=== PATIENT | male | born 1965 | race Caucasian/White ===

== ENCOUNTER 2018-06-10 06:25 | Inpatient (IN) | payer OTHER ==
[2018-06-10] MEDS ORDERED: NEOSTIGMINE 3 MG/3 ML SYRINGE (07:41)
[2018-06-10] MEDS ORDERED: ROCURONIUM 50 MG INJ (07:41)
[2018-06-10] MEDS ORDERED: PROPOFOL 20 ML (07:41)
[2018-06-10] MEDS ORDERED: CEFAZOLIN 1 GM INJ (07:41)
[2018-06-10] MEDS ORDERED: GLYCOPYRROLATE 0.4 MG INJ (07:41)
[2018-06-10] MEDS ORDERED: ONDANSETRON 4 MG INJ (07:45)
[2018-06-10] MEDS ORDERED: MIDAZOLAM 1 MG/ML 2 ML INJ (07:45)
[2018-06-10] MEDS ORDERED: FENTAnyl 50 MCG/ML VIAL (07:45)
[2018-06-10] MEDS ORDERED: DEXAMETHASONE 4 MG/ML 5 ML INJ (07:45)
[2018-06-10] MEDS ORDERED: FENTAnyl 50 MCG/ML VIAL IV ×2 (08:00)
[2018-06-10] MEDS ORDERED: NALOXONE (0.4 MG/ML) INJ IV ×2 (08:00→13:00)
[2018-06-10] MEDS ORDERED: HYDROmorphONE 0.5 MG/0.5 ML SYG IV ×2 (08:00)
[2018-06-10] MEDS ORDERED: LABETALOL HCL 20MG INJ IV (08:00)
[2018-06-10] MEDS ORDERED: IPRATROPIUM (NEB) 0.5 MG/2.5 ML AMP HHN (08:00)
[2018-06-10] MEDS ORDERED: EPHEDrine SULFATE 50 MG/5 ML SYG IV (08:00)
[2018-06-10] MEDS ORDERED: TRIMETHOBENZAMIDE 100 MG/ML VIAL IM ×2 (08:00)
[2018-06-10] MEDS ORDERED: MIDAZOLAM 1 MG/ML 2 ML INJ IV (08:00)
[2018-06-10] MEDS ORDERED: OXYCODONE/ACETAMINOPHEN (5/325) TAB PO ×2 (08:00)
[2018-06-10] MEDS ORDERED: DIPHENHYDRAMINE 50 MG INJ IV ×2 (08:00)
[2018-06-10] MEDS ORDERED: ALBUTEROL 0.083% (NEB) 2.5 MG/3 ML AMP HHN (08:00)
[2018-06-10] MEDS ORDERED: NALBUPHINE HCL (10 MG/1 ML) INJ IV (08:00)
[2018-06-10] MEDS ORDERED: HYDROmorphONE 1 MG/5 ML IV SYRINGE IV (08:00)
[2018-06-10] MEDS ORDERED: hydrALAzine 20 MG INJ IV (08:00)
[2018-06-10] MEDS ORDERED: morphine SULFATE/PF (10 MG/10 ML) INJ (08:11)
[2018-06-10] MEDS ORDERED: ROPIVACAINE 0.2% 20 ML VIAL (08:11)
[2018-06-10] MEDS ORDERED: PIPER-TAZO 3.375 GM IV (PMX) 100 ML (08:14)
[2018-06-10] MEDS ORDERED: ALBUMIN HUMAN 5% 250 ML (09:08)
[2018-06-10] MEDS ORDERED: SUGAMMADEX SODIUM 200 MG/2 ML VIAL IV (10:21)
[2018-06-10] MEDS: AMPICILLIN/SULB 3 GM/NS (PMX) 100 ML IVPB (11:26)
[2018-06-10] MEDS: HYDROmorphONE 1 MG/5 ML IV SYRINGE IV ×4 (11:44→12:58)
[2018-06-10] MEDS: FENTAnyl 50 MCG/ML VIAL IV ×2 (12:09→12:18)
[2018-06-10] MEDS: MEPERIDINE 25 MG INJ IV (12:29)
[2018-06-10] MEDS: ONDANSETRON 4 MG INJ IV ×2 (12:30→19:37)
[2018-06-10] MEDS: SOD CHLORIDE 0.9% 1,000 ML IV (14:38)
[2018-06-10] MEDS: D5W-0.45 NACL + KCL 20 MEQ 1,000 ML IV ×2 (16:52→23:28)
[2018-06-10] MEDS: PIPER-TAZO 3.375 GM IV (PMX) 100 ML IVPB ×2 (18:16→23:28)
[2018-06-10] MEDS: FENTAnyl 2MCG/ML-ROPIV 0.2% 100 ML BAG EPI (20:16)
[2018-06-11] MEDS: PIPER-TAZO 3.375 GM IV (PMX) 100 ML IVPB ×4 (05:14→23:16)
[2018-06-11 05:41] LABS: ADD MAN DIFF? NO
[2018-06-11] MEDS: FENTAnyl 2MCG/ML-ROPIV 0.2% 100 ML BAG EPI ×3 (05:46→23:52)
[2018-06-11 05:48] LABS: ABNORMAL IP MESSAGE 1; BASOPHILS % 0.1 % (0.0-2.0); HEMATOCRIT 36.9 % (42.0-52.0); HEMOGLOBIN 12.4 g/dl (14.0-18.0); LYMPHOCYTES # 0.5 10^3/ul (0.8-2.9); LYMPHOCYTES % 5.4 % (15.0-51.0); MEAN CORPUSCULAR HEMOGLOBIN 35.3 pg (29.0-33.0); MEAN CORPUSCULAR HGB CONC 33.6 g/dl (32.0-37.0); MEAN CORPUSCULAR VOLUME 105.1 fl (82.0-101.0); MEAN PLATELET VOLUME 10.9 fl (7.4-10.4); MONOCYTE # 0.6 10^3/ul (0.3-0.9); MONOCYTES % 6.3 % (0.0-11.0); NEUTROPHIL # 8.3 10^3/ul (1.6-7.5); NEUTROPHILS % 87.8 % (39.0-77.0); PLATELET COUNT 120 10^3/UL (140-415); POSITIVE DIFF @See below; RED BLOOD COUNT 3.51 10^6/ul (4.70-6.10); RED CELL DISTRIBUTION WIDTH 11.9 % (11.5-14.5)
[2018-06-11 05:48] LABS: WHITE BLOOD COUNT 9.5 10^3/ul (4.8-10.8)
[2018-06-11 06:09] LABS: MAGNESIUM 1.6 mg/dl (1.7-2.5)
[2018-06-11 06:09] LABS: PHOSPHORUS 2.8 mg/dl (2.5-4.9)
[2018-06-11 06:10] LABS: ALANINE AMINOTRANSFERASE 21 IU/L (13-69); ALBUMIN 3.2 g/dl (3.3-4.9); ALBUMIN/GLOBULIN RATIO 1.33; ALKALINE PHOSPHATASE 28 IU/L (42-121); ANION GAP 6 (5-13); ASPARTATE AMINO TRANSFERASE 22 IU/L (15-46); BILIRUBIN,INDIRECT 0.8 mg/dl (0-1.1); BILIRUBIN,TOTAL 0.8 mg/dl (0.2-1.3); BLOOD UREA NITROGEN 16 mg/dl (7-20); CALCIUM 8.1 mg/dl (8.4-10.2); CARBON DIOXIDE 27 mmol/L (21-31); CHLORIDE 104 mmol/L (97-110); CREATININE 0.91 mg/dl (0.61-1.24); Estimated GFR > 60 mL/min (>60); GLUCOSE 126 mg/dl (70-220); SODIUM 137 mmol/L (135-144); TOTAL PROTEIN 5.6 g/dl (6.1-8.1)
[2018-06-11] MEDS: ONDANSETRON 4 MG INJ IV ×2 (06:28→09:40)
[2018-06-11] MEDS: D5W-0.45 NACL + KCL 20 MEQ 1,000 ML IV ×2 (08:32→18:40)
[2018-06-11] MEDS: MAGNESIUM SULFATE 2 GM/50 ML 50 ML IVPB (11:51)
[2018-06-11] MEDS: HYDROmorphONE 0.5 MG/0.5 ML SYG IV (13:12)
[2018-06-11] MEDS: CEPASTAT LOZENGE MT (13:12)
[2018-06-12] MEDS: LORAZEPAM 2 MG INJ IV (02:14)
[2018-06-12] MEDS: D5W-0.45 NACL + KCL 20 MEQ 1,000 ML IV ×3 (03:59→12:39)
[2018-06-12 05:08] LABS: ADD MAN DIFF? NO
[2018-06-12 05:20] LABS: WHITE BLOOD COUNT 8.6 10^3/ul (4.8-10.8)
[2018-06-12 05:20] LABS: ABNORMAL IP MESSAGE 1; BASOPHILS % 0.1 % (0.0-2.0); HEMATOCRIT 36.6 % (42.0-52.0); HEMOGLOBIN 12.5 g/dl (14.0-18.0); LYMPHOCYTES # 0.5 10^3/ul (0.8-2.9); MEAN CORPUSCULAR HGB CONC 34.2 g/dl (32.0-37.0); MEAN CORPUSCULAR VOLUME 102.5 fl (82.0-101.0); MEAN PLATELET VOLUME 10.6 fl (7.4-10.4); MONOCYTE # 0.5 10^3/ul (0.3-0.9); MONOCYTES % 5.7 % (0.0-11.0); NEUTROPHIL # 7.5 10^3/ul (1.6-7.5); NEUTROPHILS % 87.5 % (39.0-77.0); PLATELET COUNT 115 10^3/UL (140-415); POSITIVE DIFF @See below; RED BLOOD COUNT 3.57 10^6/ul (4.70-6.10); RED CELL DISTRIBUTION WIDTH 11.9 % (11.5-14.5)
[2018-06-12 05:34] LABS: PHOSPHORUS 1.6 mg/dl (2.5-4.9)
[2018-06-12 05:34] LABS: MAGNESIUM 2.3 mg/dl (1.7-2.5)
[2018-06-12 05:38] LABS: ANION GAP 5 (5-13); BLOOD UREA NITROGEN 10 mg/dl (7-20); CALCIUM 8.4 mg/dl (8.4-10.2); CARBON DIOXIDE 25 mmol/L (21-31); CHLORIDE 108 mmol/L (97-110); CREATININE 0.77 mg/dl (0.61-1.24); Estimated GFR > 60 mL/min (>60); GLUCOSE 127 mg/dl (70-220); SODIUM 138 mmol/L (135-144)
[2018-06-12] MEDS: PIPER-TAZO 3.375 GM IV (PMX) 100 ML IVPB ×3 (06:22→17:08)
[2018-06-12] MEDS: FENTAnyl 2MCG/ML-ROPIV 0.2% 100 ML BAG EPI ×2 (08:39→17:08)
[2018-06-12] MEDS: HYDROmorphONE 0.5 MG/0.5 ML SYG IV ×2 (08:49→21:48)
[2018-06-12] MEDS: SODIUM PHOSPHATE 20 MEQ in SOD CHLORIDE 0.9% 250 ML IVPB (15:16)
[2018-06-12] MEDS: ONDANSETRON 4 MG INJ IV ×2 (15:22→21:46)
[2018-06-13] MEDS: D5W-0.45 NACL + KCL 20 MEQ 1,000 ML IV ×4 (00:54→23:53)
[2018-06-13] MEDS: PIPER-TAZO 3.375 GM IV (PMX) 100 ML IVPB ×5 (00:55→23:53)
[2018-06-13] MEDS: FENTAnyl 2MCG/ML-ROPIV 0.2% 100 ML BAG EPI (01:48)
[2018-06-13 05:19] LABS: ADD MAN DIFF? NO
[2018-06-13 05:20] LABS: WHITE BLOOD COUNT 8.9 10^3/ul (4.8-10.8)
[2018-06-13 05:20] LABS: ABNORMAL IP MESSAGE 1; BASOPHILS % 0.2 % (0.0-2.0); HEMATOCRIT 38.4 % (42.0-52.0); HEMOGLOBIN 13.1 g/dl (14.0-18.0); LYMPHOCYTES # 0.4 10^3/ul (0.8-2.9); LYMPHOCYTES % 4.7 % (15.0-51.0); MEAN CORPUSCULAR HEMOGLOBIN 34.7 pg (29.0-33.0); MEAN CORPUSCULAR HGB CONC 34.1 g/dl (32.0-37.0); MEAN CORPUSCULAR VOLUME 101.6 fl (82.0-101.0); MEAN PLATELET VOLUME 10.7 fl (7.4-10.4); MONOCYTE # 0.5 10^3/ul (0.3-0.9); MONOCYTES % 6.1 % (0.0-11.0); NEUTROPHIL # 7.8 10^3/ul (1.6-7.5); NEUTROPHILS % 88.3 % (39.0-77.0); PLATELET COUNT 132 10^3/UL (140-415); POSITIVE DIFF @See below; RED BLOOD COUNT 3.78 10^6/ul (4.70-6.10); RED CELL DISTRIBUTION WIDTH 11.9 % (11.5-14.5)
[2018-06-13 05:43] LABS: PHOSPHORUS 2.3 mg/dl (2.5-4.9)
[2018-06-13 05:43] LABS: MAGNESIUM 2.2 mg/dl (1.7-2.5)
[2018-06-13 06:10] LABS: ANION GAP 6 (5-13); BLOOD UREA NITROGEN 13 mg/dl (7-20); CALCIUM 8.5 mg/dl (8.4-10.2); CARBON DIOXIDE 24 mmol/L (21-31); CHLORIDE 109 mmol/L (97-110); CREATININE 0.72 mg/dl (0.61-1.24); Estimated GFR > 60 mL/min (>60); GLUCOSE 114 mg/dl (70-220); POTASSIUM 3.7 mmol/L (3.5-5.1); SODIUM 139 mmol/L (135-144)
[2018-06-13] MEDS: LORAZEPAM 2 MG INJ IV (11:05)
[2018-06-13] MEDS: POTASSIUM PHOSPHATE 40 MEQ in SOD CHLORIDE 0.9% 250 ML IVPB (11:05)
[2018-06-13] MEDS ORDERED: CEPASTAT LOZENGE MT (14:30)
[2018-06-13] MEDS: CEPASTAT LOZENGE MT ×3 (16:15→20:41)
[2018-06-14] MEDS: ONDANSETRON 4 MG INJ IV (00:48)
[2018-06-14] MEDS: HYDROmorphONE 0.5 MG/0.5 ML SYG IV (00:48)
[2018-06-14 05:37] LABS: ADD MAN DIFF? NO
[2018-06-14 05:41] LABS: WHITE BLOOD COUNT 6.5 10^3/ul (4.8-10.8)
[2018-06-14 05:41] LABS: ABNORMAL IP MESSAGE 1; BASOPHILS % 0.3 % (0.0-2.0); EOSINOPHILS % 0.2 % (0.0-7.0); HEMATOCRIT 37.3 % (42.0-52.0); HEMOGLOBIN 12.6 g/dl (14.0-18.0); LYMPHOCYTES # 0.6 10^3/ul (0.8-2.9); LYMPHOCYTES % 8.4 % (15.0-51.0); MEAN CORPUSCULAR HEMOGLOBIN 34.5 pg (29.0-33.0); MEAN CORPUSCULAR HGB CONC 33.8 g/dl (32.0-37.0); MEAN CORPUSCULAR VOLUME 102.2 fl (82.0-101.0); MEAN PLATELET VOLUME 10.8 fl (7.4-10.4); MONOCYTE # 0.5 10^3/ul (0.3-0.9); MONOCYTES % 7.2 % (0.0-11.0); NEUTROPHIL # 5.4 10^3/ul (1.6-7.5); NEUTROPHILS % 83.4 % (39.0-77.0); PLATELET COUNT 149 10^3/UL (140-415); POSITIVE DIFF @See below; RED BLOOD COUNT 3.65 10^6/ul (4.70-6.10); RED CELL DISTRIBUTION WIDTH 11.9 % (11.5-14.5)
[2018-06-14] MEDS: PIPER-TAZO 3.375 GM IV (PMX) 100 ML IVPB ×3 (05:45→17:15)
[2018-06-14 05:59] LABS: MAGNESIUM 2.3 mg/dl (1.7-2.5)
[2018-06-14 05:59] LABS: PHOSPHORUS 2.9 mg/dl (2.5-4.9)
[2018-06-14 06:13] LABS: ANION GAP 6 (5-13); BLOOD UREA NITROGEN 20 mg/dl (7-20); CALCIUM 8.2 mg/dl (8.4-10.2); CARBON DIOXIDE 25 mmol/L (21-31); CHLORIDE 108 mmol/L (97-110); Estimated GFR > 60 mL/min (>60); GLUCOSE 122 mg/dl (70-220); POTASSIUM 3.9 mmol/L (3.5-5.1); SODIUM 139 mmol/L (135-144)
[2018-06-14] MEDS: D5W-0.45 NACL + KCL 20 MEQ 1,000 ML IV ×3 (10:39→21:57)
[2018-06-15] MEDS: PIPER-TAZO 3.375 GM IV (PMX) 100 ML IVPB ×4 (00:04→18:17)
[2018-06-15] MEDS: METOCLOPRAMIDE 10 MG INJ IV ×3 (02:05→18:05)
[2018-06-15 05:18] LABS: ADD MAN DIFF? NO
[2018-06-15 05:24] LABS: ABNORMAL IP MESSAGE 1; BASOPHILS % 0.4 % (0.0-2.0); EOSINOPHILS # 0.1 10^3/ul (0.0-0.5); EOSINOPHILS % 1.5 % (0.0-7.0); HEMATOCRIT 36.3 % (42.0-52.0); HEMOGLOBIN 12.3 g/dl (14.0-18.0); LYMPHOCYTES # 0.4 10^3/ul (0.8-2.9); LYMPHOCYTES % 7.3 % (15.0-51.0); MEAN CORPUSCULAR HEMOGLOBIN 34.4 pg (29.0-33.0); MEAN CORPUSCULAR HGB CONC 33.9 g/dl (32.0-37.0); MEAN CORPUSCULAR VOLUME 101.4 fl (82.0-101.0); MEAN PLATELET VOLUME 10.5 fl (7.4-10.4); MONOCYTE # 0.5 10^3/ul (0.3-0.9); NEUTROPHIL # 4.2 10^3/ul (1.6-7.5); NEUTROPHILS % 80.6 % (39.0-77.0); PLATELET COUNT 174 10^3/UL (140-415); POSITIVE DIFF @See below; RED BLOOD COUNT 3.58 10^6/ul (4.70-6.10); RED CELL DISTRIBUTION WIDTH 11.8 % (11.5-14.5)
[2018-06-15 05:24] LABS: WHITE BLOOD COUNT 5.2 10^3/ul (4.8-10.8)
[2018-06-15] MEDS: D5W-0.45 NACL + KCL 20 MEQ 1,000 ML IV ×2 (06:32→16:43)
[2018-06-16] MEDS: PIPER-TAZO 3.375 GM IV (PMX) 100 ML IVPB ×5 (00:31→23:48)
[2018-06-16] MEDS: D5W-0.45 NACL + KCL 20 MEQ 1,000 ML IV ×2 (03:32→14:39)
[2018-06-16 05:17] LABS: ADD MAN DIFF? NO
[2018-06-16 05:25] LABS: WHITE BLOOD COUNT 5.3 10^3/ul (4.8-10.8)
[2018-06-16 05:25] LABS: ABNORMAL IP MESSAGE 1; BASOPHILS % 0.6 % (0.0-2.0); EOSINOPHILS # 0.2 10^3/ul (0.0-0.5); EOSINOPHILS % 2.8 % (0.0-7.0); HEMATOCRIT 36.5 % (42.0-52.0); HEMOGLOBIN 12.4 g/dl (14.0-18.0); LYMPHOCYTES # 0.5 10^3/ul (0.8-2.9); LYMPHOCYTES % 9.9 % (15.0-51.0); MEAN CORPUSCULAR HEMOGLOBIN 34.4 pg (29.0-33.0); MEAN CORPUSCULAR VOLUME 101.4 fl (82.0-101.0); MEAN PLATELET VOLUME 10.7 fl (7.4-10.4); MONOCYTE # 0.7 10^3/ul (0.3-0.9); MONOCYTES % 12.2 % (0.0-11.0); NEUTROPHIL # 3.9 10^3/ul (1.6-7.5); NEUTROPHILS % 72.6 % (39.0-77.0); PLATELET COUNT 170 10^3/UL (140-415); POSITIVE DIFF @See below; RED CELL DISTRIBUTION WIDTH 11.9 % (11.5-14.5)
[2018-06-16 05:57] LABS: ANION GAP 6 (5-13); BLOOD UREA NITROGEN 12 mg/dl (7-20); CALCIUM 8.7 mg/dl (8.4-10.2); CARBON DIOXIDE 28 mmol/L (21-31); CHLORIDE 103 mmol/L (97-110); CREATININE 0.95 mg/dl (0.61-1.24); Estimated GFR > 60 mL/min (>60); GLUCOSE 105 mg/dl (70-220); POTASSIUM 3.7 mmol/L (3.5-5.1); SODIUM 137 mmol/L (135-144)
[2018-06-16] MEDS: PANTOPRAZOLE 40 MG INJ IV (06:37)
[2018-06-17] MEDS: D5W-0.45 NACL + KCL 20 MEQ 1,000 ML IV ×2 (01:33→16:16)
[2018-06-17 05:16] LABS: ADD MAN DIFF? NO
[2018-06-17 05:18] LABS: BASOPHILS % 0.4 % (0.0-2.0); EOSINOPHILS # 0.2 10^3/ul (0.0-0.5); EOSINOPHILS % 2.9 % (0.0-7.0); HEMATOCRIT 37.5 % (42.0-52.0); HEMOGLOBIN 12.8 g/dl (14.0-18.0); LYMPHOCYTES # 0.7 10^3/ul (0.8-2.9); LYMPHOCYTES % 12.1 % (15.0-51.0); MEAN CORPUSCULAR HEMOGLOBIN 34.2 pg (29.0-33.0); MEAN CORPUSCULAR HGB CONC 34.1 g/dl (32.0-37.0); MEAN CORPUSCULAR VOLUME 100.3 fl (82.0-101.0); MEAN PLATELET VOLUME 10.5 fl (7.4-10.4); MONOCYTE # 0.6 10^3/ul (0.3-0.9); MONOCYTES % 10.8 % (0.0-11.0); NEUTROPHIL # 3.9 10^3/ul (1.6-7.5); PLATELET COUNT 193 10^3/UL (140-415); RED BLOOD COUNT 3.74 10^6/ul (4.70-6.10); RED CELL DISTRIBUTION WIDTH 11.8 % (11.5-14.5)
[2018-06-17 05:18] LABS: WHITE BLOOD COUNT 5.5 10^3/ul (4.8-10.8)
[2018-06-17] MEDS: PIPER-TAZO 3.375 GM IV (PMX) 100 ML IVPB ×4 (05:43→23:26)
[2018-06-17] MEDS: PANTOPRAZOLE 40 MG INJ IV (05:43)
[2018-06-17 05:50] LABS: ANION GAP 7 (5-13); BLOOD UREA NITROGEN 11 mg/dl (7-20); CARBON DIOXIDE 28 mmol/L (21-31); CHLORIDE 103 mmol/L (97-110); CREATININE 1.03 mg/dl (0.61-1.24); Estimated GFR > 60 mL/min (>60); GLUCOSE 104 mg/dl (70-220); POTASSIUM 4.1 mmol/L (3.5-5.1); SODIUM 138 mmol/L (135-144)
[2018-06-17] MEDS: IOHEXOL 300MG/ML 150 ML BTL (09:05)
[2018-06-17] MEDS: METOCLOPRAMIDE 10 MG INJ IV (14:10)
[2018-06-18] MEDS: D5W-0.45 NACL + KCL 20 MEQ 1,000 ML IV ×5 (00:01→21:28)
[2018-06-18] MEDS: PIPER-TAZO 3.375 GM IV (PMX) 100 ML IVPB ×4 (05:24→23:27)
[2018-06-18] MEDS: PANTOPRAZOLE 40 MG INJ IV (05:24)
[2018-06-18 15:26] LABS: ADD UMIC YES; UR AMORPHOUS CRYSTAL MANY /HPF (NONE SEEN); UR ASCORBIC ACID NEGATIVE (NEGATIVE); UR BACTERIA FEW /HPF (NONE SEEN); UR BILIRUBIN (Dip) NEGATIVE (NEGATIVE); UR BLOOD (Dip) 1+ mg/dL (NEGATIVE); UR CLARITY TURBID (CLEAR); UR COLOR YELLOW (YELLOW); UR GLUCOSE (Dip) NEGATIVE (NEGATIVE); UR KETONES (Dip) NEGATIVE (NEGATIVE); UR LEUKOCYTE ESTERASE (Dip) NEGATIVE Leu/ul (NEGATIVE); UR NITRITE (Dip) NEGATIVE (NEGATIVE); UR RBC 7 /HPF (0-5); UR SPECIFIC GRAVITY (Dip) 1.039 (1.003-1.030); UR TOTAL PROTEIN (Dip) NEGATIVE (NEGATIVE); UR UROBILINOGEN (Dip) NEGATIVE (NEGATIVE); UR WBC 20 /HPF (0-5)
[2018-06-19] MEDS: D5W-0.45 NACL + KCL 20 MEQ 1,000 ML IV ×5 (00:36→21:35)
[2018-06-19] MEDS: PIPER-TAZO 3.375 GM IV (PMX) 100 ML IVPB ×2 (05:06→12:16)
[2018-06-19] MEDS: PANTOPRAZOLE 40 MG INJ IV (05:07)
[2018-06-19 05:52] LABS: ADD MAN DIFF? NO
[2018-06-19 06:04] LABS: BASOPHILS % 0.6 % (0.0-2.0); EOSINOPHILS # 0.2 10^3/ul (0.0-0.5); EOSINOPHILS % 3.3 % (0.0-7.0); HEMATOCRIT 38.5 % (42.0-52.0); HEMOGLOBIN 12.8 g/dl (14.0-18.0); LYMPHOCYTES # 0.7 10^3/ul (0.8-2.9); LYMPHOCYTES % 11.2 % (15.0-51.0); MEAN CORPUSCULAR HEMOGLOBIN 34.1 pg (29.0-33.0); MEAN CORPUSCULAR HGB CONC 33.2 g/dl (32.0-37.0); MEAN CORPUSCULAR VOLUME 102.7 fl (82.0-101.0); MEAN PLATELET VOLUME 10.4 fl (7.4-10.4); MONOCYTE # 0.6 10^3/ul (0.3-0.9); MONOCYTES % 9.8 % (0.0-11.0); NEUTROPHIL # 4.7 10^3/ul (1.6-7.5); NEUTROPHILS % 73.2 % (39.0-77.0); PLATELET COUNT 258 10^3/UL (140-415); RED BLOOD COUNT 3.75 10^6/ul (4.70-6.10); RED CELL DISTRIBUTION WIDTH 11.8 % (11.5-14.5)
[2018-06-19 06:04] LABS: WHITE BLOOD COUNT 6.4 10^3/ul (4.8-10.8)
[2018-06-19] MEDS ORDERED: KETOROLAC 15 MG INJ IV (13:30)
[2018-06-20] MEDS: PANTOPRAZOLE 40 MG INJ IV (05:13)
[2018-06-20] MEDS: D5W-0.45 NACL + KCL 20 MEQ 1,000 ML IV (05:14)
[2018-06-21] MEDS: PANTOPRAZOLE 40 MG INJ IV (06:03)
== END 2018-06-21 14:40 | disposition home health service (06) | DRG 331 ==
LOC: REC 06:25 → MS1 12:58
PROVIDERS: Surgery Surgical Oncology
PROC: 0DTP0ZZ Resection of Rectum, Open Approach (ICD-10-PCS; principal; 2018-06-10 07:30)
PROC: 0D1B0Z4 Bypass Ileum to Cutaneous, Open Approach (ICD-10-PCS; 2018-06-10 07:30)
PROC: 0DTN0ZZ Resection of Sigmoid Colon, Open Approach (ICD-10-PCS; 2018-06-10 07:30)
DX: C20 Malignant neoplasm of rectum (principal); Z72.0 Tobacco use; R11.2 Nausea with vomiting, unspecified; R10.13 Epigastric pain; G89.18 Other acute postprocedural pain; D53.9 Nutritional anemia, unspecified; R14.0 Abdominal distension (gaseous)
CPT/HCPCS: 71046; 74018; 74019; 74250; 80048; 80053; 81001; 83735; 84100; 85025; 87086; 88307; 88331; 97161

== ENCOUNTER 2018-07-23 08:08 | Day surgery (SDC) | payer OTHER ==
[2018-07-23] MEDS: POLYMYXIN/BACITRACIN 1L IRRIG IRR (10:00)
[2018-07-23] MEDS ORDERED: CEFAZOLIN 1 GM/50 ML (PMX) 50 ML IVPB (10:26)
[2018-07-23] MEDS: CEFAZOLIN 1 GM/50 ML (PMX) 50 ML IVPB (10:40)
[2018-07-23] MEDS: SOD CHLORIDE 0.9% 1,000 ML IV (10:40)
[2018-07-23] MEDS: FENTAnyl 50 MCG/ML VIAL (11:03)
[2018-07-23] MEDS: LIDOCAINE 1%/EPI (1:100,000) (MDV) 20 ML ×2 (11:03→11:09)
[2018-07-23] MEDS: HEPARIN 1000 UNITS/ML 10 ML INJ (11:15)
== END 2018-07-23 12:51 | disposition home or self-care (01) ==
LOC: SDS 08:08
DX: C20 Malignant neoplasm of rectum (principal)
CPT/HCPCS: 36561; 76942